=== PATIENT | female | born 1985 ===

== ENCOUNTER 2022-07-14 10:21 | Inpatient (IN) | payer SELFPAY ==
[2022-07-14] MEDS ORDERED: ACETAMINOPHEN 325 MG TAB PO PRN (13:27)
[2022-07-14] MEDS ORDERED: TERBUTALINE 1 MG/1 ML INJ SUB-Q PRN (13:27)
[2022-07-14] MEDS ORDERED: fentaNYL 100 MCG/2 ML INJ IV PRN (13:27)
[2022-07-14] MEDS ORDERED: BUTORPHANOL 2 MG/1 ML INJ IV PRN ×2 (13:27→22:28)
[2022-07-14] MEDS ORDERED: miSOPROStol 200 MCG TAB PR PRN (13:27)
[2022-07-14] MEDS ORDERED: LOPERAMIDE 2 MG CAP PO PRN (13:27)
[2022-07-14] MEDS ORDERED: METHYLERGONOVINE MALEATE 0.2 MG/ML VIAL IM PRN (13:27)
[2022-07-14] MEDS ORDERED: OXYTOCIN 10 UNIT/1 ML INJ IM PRN (13:27)
[2022-07-14] MEDS ORDERED: MINERAL OIL 30 ML ORAL LIQD PO PRN (13:27)
[2022-07-14] MEDS ORDERED: CARBOPROST TROMETHAMINE 250 MCG/1 ML INJ IM PRN (13:27)
[2022-07-14] MEDS ORDERED: LIDOCAINE (2%) 20 MG/1 ML VIAL 20 ML MDV INFILTRATI ONE (13:27)
[2022-07-14] MEDS ORDERED: ePHEDrine SULFATE 50 MG/1 ML INJ IV PRN (13:27)
[2022-07-14] MEDS ORDERED: LACTATED RINGERS 1,000 ML IV SCH (13:30)
[2022-07-14] MEDS ORDERED: MAGNESIUM SULFATE 4 GM/100 ML BAG IV ONE (13:42)
[2022-07-14 13:53] LABS: Hematocrit 32.8 % (30.3-42.9); Hemoglobin 10.3 gm/dl (10.1-14.3); Mean Corpuscular HGB Conc 31 % (30-34); Mean Corpuscular Volume 73 fl (79-97); Platelet Count 238 K/mm3 (140-440); Red Cell Distribution Width 17.2 % (13.2-15.2)
[2022-07-14] MEDS ORDERED: MAGNESIUM SULFATE 40GM/1000ML 40 GM/1,000 ML BAG IV SCH (14:00)
[2022-07-14] MEDS ORDERED: OXYTOCIN DRIP 30 UNITS/500 ML BAG IV SCH (14:00)
[2022-07-14] MEDS ORDERED: AMPICILLIN/NS 2 GM/100 ML 2 GM/100 ML BAG IV ONE (15:23)
[2022-07-14] MEDS: OXYTOCIN DRIP 30 UNITS/500 ML BAG IV SCH ×2 (15:48→18:53)
--- NOTE | 2022-07-14 16:11 | History and Physical Report ---
History of Present Illness Date of examination: 07/14/22 Date of admission: 07/14/22 13:27 Chief complaint: Presents from [facility] with elevated blood pressures. States she has had Nausea since this morning. History of present illness: Care at [facility], care complicated by a UTI, AMA, and Anemia. Past History Past Medical History: liver disease (Fatty Liver (seen on US on 01/2022)), other (Covid: 2020) Past Surgical History: other (Inguninal Hernia (2020)) Family/Genetic History: diabetes (Father), hypertension (Mother) Social history: no significant social history - Obstetrical History Expected Date of Delivery: 07/29/22 Actual Gestation: 37 Week(s) 6 Day(s) : 5 Para: 4 Hx # Term Pregnancies: 4 Number of Living Children: 4 #1 Gender: Female year: 2,002 Method of Delivery: Vaginal Gestational age at delivery: 40 Complications: none #2 Infant Gender: Female year: 2,006 Birthweight: 4.082 kg Method of Delivery: Vaginal Gestational age at delivery: 40 Complications: none #3 Infant Gender: Female year: 2,012 Birthweight: 4.082 kg Method of Delivery: Vaginal Gestational age at delivery: 40 Complications: none #4 Infant Gender: Male year: 2,016 Birthweight: 5.131 kg Method of Delivery: Vaginal Gestational age at delivery: 40 Complications: none Medications and Allergies Allergies Allergy/AdvReac Type Severity Reaction Status Date / Time No Known Allergies Allergy Unverified 05/06/15 02:40 Home Medications Medication Instructions Recorded Confirmed Last Taken Type Ibuprofen [Motrin 600 MG tab] 600 mg PO Q6HR #30 tablet 12/01/15 Unknown Rx oxyCODONE /ACETAMINOPHEN [Percocet 2 tab PO Q4H PRN #30 tablet 12/01/15 Unknown Rx 5/325 mg] Active Meds: Active Medications Acetaminophen (Acetaminophen 325 Mg Tab) 650 mg PO Q4H PRN PRN Reason: Pain, Mild (1-3) Butorphanol Tartrate (Butorphanol 2 Mg/1 Ml Inj) 1 mg IV Q2H PRN PRN Reason: Pain, Moderate(4-6) LABOR PAIN Carboprost Tromethamine (Carboprost Tromethamine 250 Mcg/1 Ml Inj) 250 mcg IM ONCE PRN PRN Reason: Uterine Bleeding Ephedrine Sulfate (Ephedrine Sulfate 50 Mg/1 Ml Inj) 10 mg IV Q2M PRN PRN Reason: Hypotension Fentanyl (Fentanyl 100 Mcg/2 Ml Inj) 100 mcg IV Q2H PRN PRN Reason: Pain,Severe (7-10) LABOR PAIN Oxytocin/Sodium Chloride (Pitocin/Ns 30 Unit/500ml) 30 units in 500 mls @ 2 mls/hr IV TITR PROMISE; Protocol Last Admin: 07/14/22 15:48 Dose: 2 ml/hr, 2 mls/hr Lactated Ringer's (Lactated Ringers) 1,000 mls @ 125 mls/hr IV DIRECT PROMISE Last Admin: 07/14/22 15:43 Dose: 125 mls/hr Oxytocin/Sodium Chloride (Pitocin/Ns 30 Unit/500ml) 30 units in 500 mls @ 40 mls/hr IV TITR PROMISE; Protocol Magnesium Sulfate (Magnesium Sulfate 40gm/1000ml) 40 gm in 1,000 mls @ 50 mls/hr IV DIRECT PROMISE Last Admin: 07/14/22 15:53 Dose: 2 gm/hr, 50 mls/hr Ampicillin Sodium (Ampicillin/Ns 2 Gm/100 Ml) 2 gm in 100 mls @ 100 mls/hr IV ONCE ONE; Protocol Stop: 07/14/22 16:22 Ampicillin Sodium (Ampicillin/Ns 1 Gm/50 Ml) 1 gm in 50 mls @ 100 mls/hr IV Q4H PROMISE; Protocol Loperamide HCl (Loperamide 2 Mg Cap) 2 mg PO ONCE PRN PRN Reason: give with Hemabate Methylergonovine Maleate (Methylergonovine Maleate 0.2 Mg/Ml Vial) 0.2 mg IM ONCE PRN PRN Reason: Uterine Bleeding Mineral Oil (Mineral Oil 30 Ml Oral Liqd) 30 ml PO QHS PRN PRN Reason: Constipation Misoprostol (Misoprostol 200 Mcg Tab) 800 mcg ME ONCE PRN PRN Reason: Uterine Bleeding Oxytocin (Oxytocin 10 Unit/1 Ml Inj) 10 unit IM ONCE PRN PRN Reason: Uterine Bleeding Terbutaline Sulfate (Terbutaline 1 Mg/1 Ml Inj) 0.25 mg SUB-Q ONCE PRN PRN Reason: Hyperstimulation/Hypertonicity Review of Systems All systems: negative Gastrointestinal: nausea - Vital Signs Vital signs: Vital Signs Pulse BP Pulse Ox 64 166/78 97 07/14/22 10:58 07/14/22 10:58 07/14/22 10:58 Temp Pulse Resp BP Pulse Ox 98.6 F 98 H 16 139/75 90 07/14/22 11:00 07/14/22 16:03 07/14/22 11:00 07/14/22 15:53 07/14/22 16:03 - Physical Exam Breasts: Positive: normal Cardiovascular: Regular rate Lungs: Positive: Clear to auscultation, Normal air movement Abdomen: Positive: normal appearance, soft, normal bowel sounds Genitourinary (Female): Positive: normal external genitalia, normal perenium Vagina: Positive: normal moisture Uterus: Positive: enlarged Anus/Rectum: Positive: normal perianal skin Extremities: Positive: edema (trace) - Obstetrical FHR: category 1 Uterine Contraction Monitor Mode: External Cervical Dilatation: 3 Cervical Effacement Percentage: 50 station: -3 Uterine Contraction Pattern: Irregular Uterine Tone Measurement Phase: Resting Uterine Contraction Intensity: Moderate Results Result Diagrams: 07/14/22 13:47 Abnormal lab results 07/14/22 Range/Units 13:47 MCV 73 L (79-97) fl MCH 23 L (28-32) pg RDW 17.2 H (13.2-15.2) % All other labs normal. Assessment and Plan A: IUP @ 37 6/7 Weeks Category I Tracing Preeclampsia AMA GBS Positive P: Admit to L&D Per Routine Orders PIH Labs Pitocin Induction GBS Prophylaxis Magnesium Sulfate 4G/loading dose; 2G/hourly Standard Magnesium Precautions Consulted Dr. Montemayor: Agrees with Current Plan of Care
[2022-07-14 16:12] LABS: Alanine Aminotransferase 9 units/L (7-56)
--- NOTE | 2022-07-14 18:56 | Progress Note ---
Assessment and Plan A: IUP @ 37 6/7 Weeks Category I Tracing Preeclampsia AMA GBS Positive P: AROM Continue Pitocin Induction Continue GBS Prophylaxis Continue Magnesium Sulfate 2G/hourly Standard Magnesium Precautions Subjective - Subjective Date of service: 07/14/22 Interval history: Care at [facility], care complicated by a UTI, AMA, and Anemia. Patient reports: movement normal, contractions Objective - Vital Signs Vital Signs: Vital Signs - 12hr 07/14/22 07/14/22 07/14/22 10:58 11:00 11:03 Temperature 98.6 F Pulse Rate 64 70 70 Respiratory 16 Rate Blood Pressure 166/78 Blood Pressure 166/78 [Right] O2 Sat by Pulse 97 99 98 Oximetry 07/14/22 07/14/22 07/14/22 11:08 11:13 11:14 Temperature Pulse Rate 60 65 64 Respiratory Rate Blood Pressure 161/82 Blood Pressure [Right] O2 Sat by Pulse 99 97 Oximetry 07/14/22 07/14/22 07/14/22 11:24 11:34 11:39 Temperature Pulse Rate 60 65 60 Respiratory Rate Blood Pressure 149/73 131/77 Blood Pressure [Right] O2 Sat by Pulse 97 97 Oximetry 07/14/22 07/14/22 07/14/22 11:44 11:49 11:54 Temperature Pulse Rate 65 66 64 Respiratory Rate Blood Pressure 131/81 Blood Pressure [Right] O2 Sat by Pulse 97 98 98 Oximetry 07/14/22 07/14/22 07/14/22 11:56 11:59 12:04 Temperature Pulse Rate 66 65 71 Respiratory Rate Blood Pressure 153/80 Blood Pressure [Right] O2 Sat by Pulse 97 97 Oximetry 07/14/22 07/14/22 07/14/22 12:09 12:14 12:19 Temperature Pulse Rate 65 63 64 Respiratory Rate Blood Pressure 136/72 Blood Pressure [Right] O2 Sat by Pulse 98 98 98 Oximetry 07/14/22 07/14/22 07/14/22 12:24 12:53 12:58 Temperature Pulse Rate 66 59 L 61 Respiratory Rate Blood Pressure 134/75 Blood Pressure [Right] O2 Sat by Pulse 98 98 98 Oximetry 07/14/22 07/14/22 07/14/22 13:03 13:07 13:08 Temperature Pulse Rate 69 60 63 Respiratory Rate Blood Pressure 139/68 Blood Pressure [Right] O2 Sat by Pulse 98 98 Oximetry 07/14/22 07/14/22 07/14/22 13:13 13:18 13:22 Temperature Pulse Rate 76 89 83 Respiratory Rate Blood Pressure 111/71 Blood Pressure [Right] O2 Sat by Pulse 96 97 Oximetry 07/14/22 07/14/22 07/14/22 13:23 13:28 13:33 Temperature Pulse Rate 92 H 81 73 Respiratory Rate Blood Pressure Blood Pressure [Right] O2 Sat by Pulse 94 95 97 Oximetry 07/14/22 07/14/22 07/14/22 13:37 13:38 13:43 Temperature Pulse Rate 78 67 74 Respiratory Rate Blood Pressure 115/77 Blood Pressure [Right] O2 Sat by Pulse 98 97 Oximetry 07/14/22 07/14/22 07/14/22 14:55 15:00 15:05 Temperature Pulse Rate 81 78 81 Respiratory Rate Blood Pressure Blood Pressure [Right] O2 Sat by Pulse 98 97 96 Oximetry 07/14/22 07/14/22 07/14/22 15:07 15:10 15:15 Temperature Pulse Rate 69 75 76 Respiratory Rate Blood Pressure 130/69 Blood Pressure [Right] O2 Sat by Pulse 96 98 Oximetry 07/14/22 07/14/22 07/14/22 15:20 15:24 15:25 Temperature Pulse Rate 79 79 78 Respiratory Rate Blood Pressure 143/80 Blood Pressure [Right] O2 Sat by Pulse 98 98 Oximetry 07/14/22 07/14/22 07/14/22 15:30 15:35 15:39 Temperature Pulse Rate 82 83 77 Respiratory Rate Blood Pressure 144/67 Blood Pressure [Right] O2 Sat by Pulse 97 97 Oximetry 07/14/22 07/14/22 07/14/22 15:40 15:45 15:50 Temperature Pulse Rate 83 80 80 Respiratory Rate Blood Pressure Blood Pressure [Right] O2 Sat by Pulse 97 96 97 Oximetry 07/14/22 07/14/22 07/14/22 15:53 15:55 16:00 Temperature Pulse Rate 76 95 H 81 Respiratory Rate Blood Pressure 139/75 Blood Pressure [Right] O2 Sat by Pulse 97 99 Oximetry 07/14/22 07/14/22 07/14/22 16:03 16:05 16:09 Temperature Pulse Rate 98 H 83 73 Respiratory Rate Blood Pressure 185/83 Blood Pressure [Right] O2 Sat by Pulse 90 98 Oximetry 07/14/22 07/14/22 07/14/22 16:10 16:15 16:20 Temperature Pulse Rate 76 78 78 Respiratory Rate Blood Pressure Blood Pressure [Right] O2 Sat by Pulse 96 96 96 Oximetry 07/14/22 07/14/22 07/14/22 16:24 16:25 16:30 Temperature Pulse Rate 71 76 71 Respiratory Rate Blood Pressure 149/71 Blood Pressure [Right] O2 Sat by Pulse 96 97 Oximetry 07/14/22 07/14/22 07/14/22 16:35 16:38 16:40 Temperature Pulse Rate 79 73 71 Respiratory Rate Blood Pressure 143/73 Blood Pressure [Right] O2 Sat by Pulse 97 97 Oximetry 07/14/22 07/14/22 07/14/22 16:45 16:50 16:52 Temperature Pulse Rate 77 76 73 Respiratory Rate Blood Pressure 131/70 Blood Pressure [Right] O2 Sat by Pulse 97 97 Oximetry 07/14/22 07/14/22 07/14/22 16:55 17:00 17:05 Temperature Pulse Rate 79 74 73 Respiratory Rate Blood Pressure Blood Pressure [Right] O2 Sat by Pulse 96 96 98 Oximetry 07/14/22 07/14/22 07/14/22 17:07 17:10 17:15 Temperature Pulse Rate 74 75 75 Respiratory Rate Blood Pressure 143/80 Blood Pressure [Right] O2 Sat by Pulse 98 97 Oximetry 07/14/22 07/14/22 07/14/22 17:20 17:22 17:25 Temperature Pulse Rate 79 70 70 Respiratory Rate Blood Pressure 139/78 Blood Pressure [Right] O2 Sat by Pulse 96 97 Oximetry 07/14/22 07/14/22 07/14/22 17:30 17:35 17:38 Temperature Pulse Rate 76 73 72 Respiratory Rate Blood Pressure 139/74 Blood Pressure [Right] O2 Sat by Pulse 98 97 Oximetry 07/14/22 07/14/22 07/14/22 17:40 17:45 17:50 Temperature Pulse Rate 85 73 75 Respiratory Rate Blood Pressure Blood Pressure [Right] O2 Sat by Pulse 97 97 98 Oximetry 07/14/22 07/14/22 07/14/22 17:52 17:55 18:00 Temperature Pulse Rate 75 73 71 Respiratory Rate Blood Pressure 135/73 Blood Pressure [Right] O2 Sat by Pulse 97 98 Oximetry 07/14/22 07/14/22 07/14/22 18:05 18:09 18:10 Temperature Pulse Rate 72 67 76 Respiratory Rate Blood Pressure 142/72 Blood Pressure [Right] O2 Sat by Pulse 96 98 Oximetry 07/14/22 07/14/22 07/14/22 18:15 18:20 18:25 Temperature Pulse Rate 84 83 73 Respiratory Rate Blood Pressure Blood Pressure [Right] O2 Sat by Pulse 98 97 97 Oximetry 07/14/22 07/14/22 07/14/22 18:30 18:35 18:38 Temperature Pulse Rate 74 71 75 Respiratory Rate Blood Pressure 153/76 Blood Pressure [Right] O2 Sat by Pulse 97 96 Oximetry 07/14/22 07/14/22 07/14/22 18:40 18:45 18:50 Temperature Pulse Rate 75 79 71 Respiratory Rate Blood Pressure Blood Pressure [Right] O2 Sat by Pulse 98 97 98 Oximetry - Exam Breasts: normal Cardiovascular: Regular rate Lungs: Clear to auscultation, Normal air movement Abdomen: Present: normal appearance, soft, normal bowel sounds Uterus: Present: normal, firm, fundal height above umbilicus FHR: category 1 Uterine Contraction Monitor Mode: External Cervical Dilatation: 4 (AROM of a moderate amount of clear fluid @1839) Cervical Effacement Percentage: 60 station: -3 Uterine Contraction Pattern: Regular Uterine Tone Measurement Phase: Resting Uterine Contraction Intensity: Moderate Extremities: normal - Labs Labs: Abnormal Labs 07/14/22 07/14/22 13:47 15:40 MCV 73 L MCH 23 L RDW 17.2 H Creatinine 0.5 L Laboratory Results - last 24 hr 07/14/22 07/14/22 07/14/22 13:00 13:45 13:47 WBC 6.4 RBC 4.50 Hgb 10.3 Hct 32.8 MCV 73 L MCH 23 L MCHC 31 RDW 17.2 H Plt Count 238 Creatinine Estimated GFR Uric Acid AST ALT Lactate Dehydrogenase Syphilis IgG/IgM Ab Nonreactive Blood Type O POSITIVE Antibody Screen Negative 07/14/22 15:40 WBC RBC Hgb Hct MCV MCH MCHC RDW Plt Count Creatinine 0.5 L Estimated GFR > 60 Uric Acid 4.0 AST 19 ALT 9 Lactate Dehydrogenase 129 Syphilis IgG/IgM Ab Blood Type Antibody Screen
[2022-07-14] MEDS ORDERED: AMPICILLIN/NS 1 GM/50 ML 1 GM/50 ML BAG IV SCH (20:00)
[2022-07-14 23:07] LABS: Color,Urine Colorless (Yellow)
[2022-07-14 23:12] LABS: Bacteria,Urine 1+ /HPF (Negative); Mucus,Urine FEW /HPF
[2022-07-14 23:17] LABS: Amphetamine Screen,Urine Negative; Benzodiazepines Screen,Urine Negative; Cannabinoid Screen,Urine Negative; Cocaine Screen,Urine Negative; Methadone Screen,Urine Negative; Opiate Screen,Urine Negative
[2022-07-14 23:24] LABS: Creatinine,Urine 35.2 mg/dL (0.1-20.0)
--- NOTE | 2022-07-15 00:56 | Procedure Note ---
OB Delivery Note - Delivery Date of Delivery: 07/14/22 Surgeon: HALIMA LEE Estimated blood loss: other (400 mL) - Vaginal Delivery presentation: vertex Delivery position: OA Intrapartum events: preeclampsia, other(please specify) (Pre-eclampsia w/ severe features, AMA, GBS (+)) Delivery induction: oxytocin Delivery augmentation: rupture of membranes Delivery monitor: external FHT, external uterine Route of delivery: Delivery placenta: spontaneous Delivery cord: 3 umbilical vessels Episiotomy: none Delivery laceration: none Anesthesia: none - A at 1 minute: 7 at 5 minutes: 9 Infant Gender: Male (3580 g)
[2022-07-15] MEDS ORDERED: BENZOCAINE/MENTHOL 20/0.5% TOP SPRAY 56 GM TP PRN (01:04)
[2022-07-15] MEDS ORDERED: diphenhydrAMINE 25 MG CAP PO PRN (01:04)
[2022-07-15] MEDS ORDERED: ACETAMINOPHEN 325 MG TAB PO PRN (01:04)
[2022-07-15] MEDS ORDERED: LANOLIN/ZINC/DIMETHICONE (LANSINOH) 7 GM TP PRN (01:04)
[2022-07-15] MEDS ORDERED: HYDROcodone/ACETAMINOPHEN 5-325 MG TAB PO PRN (01:04)
[2022-07-15] MEDS ORDERED: WITCH HAZEL/ GLYCERIN PAD TP PRN (01:04)
[2022-07-15] MEDS ORDERED: MAGNESIUM SULFATE 2 GM/50 ML BAG IV ONE (01:07)
[2022-07-15] MEDS ORDERED: MAGNESIUM SULFATE 40GM/1000ML 40 GM/1,000 ML BAG IV SCH (02:00)
[2022-07-15 07:44] LABS: Mean Corpuscular HGB Conc 31 % (30-34); Mean Corpuscular Volume 73 fl (79-97); Platelet Count 253 K/mm3 (140-440); Red Blood Count 4.38 M/mm3 (3.65-5.03); Red Cell Distribution Width 17.1 % (13.2-15.2)
[2022-07-15] MEDS: DOCUSATE SODIUM 100 MG CAP PO SCH (11:58)
--- NOTE | 2022-07-15 13:08 | Progress Note ---
Assessment and Plan PPD#1 with preeclampsia stable on mag sulfate 1. Routine care 2. Continue mag sulfate until 24hrs post delivery 3. all questions encouraged and answered using bond runner. Subjective Date of service: 07/15/22 Principal diagnosis: PPD#1 with preeclampsia Interval history: pt denies headache. pain controlled with meds. Vag bleed like a period. pt is bottle feeding because she says her milk has not arrived as yet Objective - Constitutional Vitals: Vital Signs - 12hr 07/15/22 07/15/22 07/15/22 01:19 01:20 01:39 Temperature Pulse Rate 69 62 79 Respiratory Rate Blood Pressure 146/69 Blood Pressure [Right] O2 Sat by Pulse 97 96 Oximetry O2 Sat by Pulse Oximetry [ Posterior Bilateral Throughout] 07/15/22 07/15/22 07/15/22 01:44 01:47 01:49 Temperature Pulse Rate 74 76 77 Respiratory Rate Blood Pressure Blood Pressure [Right] O2 Sat by Pulse 97 94 97 Oximetry O2 Sat by Pulse Oximetry [ Posterior Bilateral Throughout] 07/15/22 07/15/22 07/15/22 01:54 01:59 02:04 Temperature Pulse Rate 70 72 76 Respiratory Rate Blood Pressure Blood Pressure [Right] O2 Sat by Pulse 96 96 96 Oximetry O2 Sat by Pulse Oximetry [ Posterior Bilateral Throughout] 07/15/22 07/15/22 07/15/22 02:08 02:09 02:14 Temperature Pulse Rate 70 69 76 Respiratory Rate Blood Pressure 137/68 Blood Pressure [Right] O2 Sat by Pulse 97 96 Oximetry O2 Sat by Pulse Oximetry [ Posterior Bilateral Throughout] 07/15/22 07/15/22 07/15/22 02:19 02:24 02:29 Temperature Pulse Rate 79 76 77 Respiratory Rate Blood Pressure Blood Pressure [Right] O2 Sat by Pulse 96 98 97 Oximetry O2 Sat by Pulse Oximetry [ Posterior Bilateral Throughout] 07/15/22 07/15/22 07/15/22 02:34 02:38 02:39 Temperature Pulse Rate 74 71 76 Respiratory Rate Blood Pressure 138/71 Blood Pressure [Right] O2 Sat by Pulse 98 98 Oximetry O2 Sat by Pulse Oximetry [ Posterior Bilateral Throughout] 07/15/22 07/15/22 07/15/22 02:44 02:49 02:54 Temperature Pulse Rate 74 75 74 Respiratory Rate Blood Pressure Blood Pressure [Right] O2 Sat by Pulse 97 97 97 Oximetry O2 Sat by Pulse Oximetry [ Posterior Bilateral Throughout] 07/15/22 07/15/22 07/15/22 02:58 02:59 03:04 Temperature Pulse Rate 76 75 75 Respiratory Rate Blood Pressure Blood Pressure [Right] O2 Sat by Pulse 93 97 96 Oximetry O2 Sat by Pulse Oximetry [ Posterior Bilateral Throughout] 07/15/22 07/15/22 07/15/22 03:08 03:09 03:10 Temperature Pulse Rate 71 77 83 Respiratory Rate Blood Pressure 141/73 Blood Pressure [Right] O2 Sat by Pulse 96 93 Oximetry O2 Sat by Pulse Oximetry [ Posterior Bilateral Throughout] 07/15/22 07/15/22 07/15/22 03:14 03:19 03:24 Temperature Pulse Rate 79 76 78 Respiratory Rate Blood Pressure Blood Pressure [Right] O2 Sat by Pulse 96 98 97 Oximetry O2 Sat by Pulse Oximetry [ Posterior Bilateral Throughout] 07/15/22 07/15/22 07/15/22 03:29 03:34 03:38 Temperature Pulse Rate 81 75 75 Respiratory Rate Blood Pressure 140/76 Blood Pressure [Right] O2 Sat by Pulse 96 96 Oximetry O2 Sat by Pulse Oximetry [ Posterior Bilateral Throughout] 07/15/22 07/15/22 07/15/22 03:39 03:40 03:44 Temperature Pulse Rate 78 79 Respiratory Rate Blood Pressure Blood Pressure [Right] O2 Sat by Pulse 97 97 Oximetry O2 Sat by Pulse 97 Oximetry [ Posterior Bilateral Throughout] 07/15/22 07/15/22 07/15/22 03:49 03:54 03:59 Temperature Pulse Rate 76 81 83 Respiratory Rate Blood Pressure Blood Pressure [Right] O2 Sat by Pulse 98 99 98 Oximetry O2 Sat by Pulse Oximetry [ Posterior Bilateral Throughout] 07/15/22 07/15/22 07/15/22 04:04 04:09 04:14 Temperature Pulse Rate 82 87 89 Respiratory Rate Blood Pressure 138/76 Blood Pressure [Right] O2 Sat by Pulse 98 97 96 Oximetry O2 Sat by Pulse Oximetry [ Posterior Bilateral Throughout] 07/15/22 07/15/22 07/15/22 04:19 04:24 04:29 Temperature Pulse Rate 76 79 79 Respiratory Rate Blood Pressure Blood Pressure [Right] O2 Sat by Pulse 97 97 97 Oximetry O2 Sat by Pulse Oximetry [ Posterior Bilateral Throughout] 07/15/22 07/15/22 07/15/22 04:34 04:38 04:39 Temperature Pulse Rate 80 79 79 Respiratory Rate Blood Pressure 137/73 Blood Pressure [Right] O2 Sat by Pulse 97 97 Oximetry O2 Sat by Pulse Oximetry [ Posterior Bilateral Throughout] 07/15/22 07/15/22 07/15/22 04:44 04:49 04:54 Temperature Pulse Rate 80 78 79 Respiratory Rate Blood Pressure Blood Pressure [Right] O2 Sat by Pulse 96 97 96 Oximetry O2 Sat by Pulse Oximetry [ Posterior Bilateral Throughout] 07/15/22 07/15/22 07/15/22 04:59 05:02 05:04 Temperature Pulse Rate 82 84 85 Respiratory Rate Blood Pressure Blood Pressure [Right] O2 Sat by Pulse 97 94 97 Oximetry O2 Sat by Pulse Oximetry [ Posterior Bilateral Throughout] 07/15/22 07/15/22 07/15/22 05:09 05:14 05:19 Temperature Pulse Rate 85 84 82 Respiratory Rate Blood Pressure 134/76 Blood Pressure [Right] O2 Sat by Pulse 95 98 97 Oximetry O2 Sat by Pulse Oximetry [ Posterior Bilateral Throughout] 07/15/22 07/15/22 07/15/22 05:24 05:29 05:34 Temperature Pulse Rate 82 82 79 Respiratory Rate Blood Pressure Blood Pressure [Right] O2 Sat by Pulse 96 95 97 Oximetry O2 Sat by Pulse Oximetry [ Posterior Bilateral Throughout] 07/15/22 07/15/22 07/15/22 05:38 05:39 05:44 Temperature Pulse Rate 75 72 71 Respiratory Rate Blood Pressure 137/76 Blood Pressure [Right] O2 Sat by Pulse 97 96 Oximetry O2 Sat by Pulse Oximetry [ Posterior Bilateral Throughout] 07/15/22 07/15/22 07/15/22 05:49 05:54 05:59 Temperature Pulse Rate 72 72 76 Respiratory Rate Blood Pressure Blood Pressure [Right] O2 Sat by Pulse 98 98 98 Oximetry O2 Sat by Pulse Oximetry [ Posterior Bilateral Throughout] 07/15/22 07/15/22 07/15/22 06:04 06:09 06:14 Temperature Pulse Rate 78 73 82 Respiratory Rate Blood Pressure 138/74 Blood Pressure [Right] O2 Sat by Pulse 98 97 97 Oximetry O2 Sat by Pulse Oximetry [ Posterior Bilateral Throughout] 07/15/22 07/15/22 07/15/22 06:19 06:24 06:29 Temperature Pulse Rate 76 78 76 Respiratory Rate Blood Pressure Blood Pressure [Right] O2 Sat by Pulse 98 99 98 Oximetry O2 Sat by Pulse Oximetry [ Posterior Bilateral Throughout] 07/15/22 07/15/22 07/15/22 06:34 06:38 06:39 Temperature Pulse Rate 81 76 77 Respiratory Rate Blood Pressure 135/68 Blood Pressure [Right] O2 Sat by Pulse 98 99 Oximetry O2 Sat by Pulse Oximetry [ Posterior Bilateral Throughout] 07/15/22 07/15/22 07/15/22 06:44 06:49 06:54 Temperature Pulse Rate 83 81 76 Respiratory Rate Blood Pressure Blood Pressure [Right] O2 Sat by Pulse 99 98 98 Oximetry O2 Sat by Pulse Oximetry [ Posterior Bilateral Throughout] 07/15/22 07/15/22 07/15/22 06:59 07:04 07:08 Temperature Pulse Rate 77 73 74 Respiratory Rate Blood Pressure 121/68 Blood Pressure [Right] O2 Sat by Pulse 98 98 Oximetry O2 Sat by Pulse Oximetry [ Posterior Bilateral Throughout] 07/15/22 07/15/22 07/15/22 07:09 07:14 07:19 Temperature 98.1 F Pulse Rate 81 77 78 Respiratory 20 Rate Blood Pressure Blood Pressure [Right] O2 Sat by Pulse 98 98 97 Oximetry O2 Sat by Pulse Oximetry [ Posterior Bilateral Throughout] 07/15/22 07/15/22 07/15/22 07:24 07:29 07:34 Temperature Pulse Rate 85 86 81 Respiratory Rate Blood Pressure Blood Pressure [Right] O2 Sat by Pulse 97 97 98 Oximetry O2 Sat by Pulse Oximetry [ Posterior Bilateral Throughout] 07/15/22 07/15/22 07/15/22 07:39 07:40 07:44 Temperature Pulse Rate 82 80 Respiratory Rate Blood Pressure Blood Pressure [Right] O2 Sat by Pulse 98 96 Oximetry O2 Sat by Pulse 96 Oximetry [ Posterior Bilateral Throughout] 07/15/22 07/15/22 07/15/22 07:49 07:54 07:59 Temperature Pulse Rate 85 83 79 Respiratory Rate Blood Pressure Blood Pressure [Right] O2 Sat by Pulse 97 98 94 Oximetry O2 Sat by Pulse Oximetry [ Posterior Bilateral Throughout] 07/15/22 07/15/22 07/15/22 08:04 08:05 08:09 Temperature Pulse Rate 80 78 81 Respiratory Rate Blood Pressure 136/70 Blood Pressure [Right] O2 Sat by Pulse 96 91 96 Oximetry O2 Sat by Pulse Oximetry [ Posterior Bilateral Throughout] 07/15/22 07/15/22 07/15/22 08:11 08:14 08:19 Temperature Pulse Rate 91 H 79 84 Respiratory Rate Blood Pressure Blood Pressure [Right] O2 Sat by Pulse 94 96 96 Oximetry O2 Sat by Pulse Oximetry [ Posterior Bilateral Throughout] 07/15/22 07/15/22 07/15/22 08:24 08:29 08:34 Temperature Pulse Rate 82 82 87 Respiratory Rate Blood Pressure Blood Pressure [Right] O2 Sat by Pulse 98 98 97 Oximetry O2 Sat by Pulse Oximetry [ Posterior Bilateral Throughout] 07/15/22 07/15/22 07/15/22 08:39 08:44 08:49 Temperature Pulse Rate 90 86 83 Respiratory Rate Blood Pressure Blood Pressure [Right] O2 Sat by Pulse 96 96 96 Oximetry O2 Sat by Pulse Oximetry [ Posterior Bilateral Throughout] 07/15/22 07/15/22 07/15/22 08:54 08:59 09:01 Temperature Pulse Rate 80 77 84 Respiratory Rate Blood Pressure Blood Pressure [Right] O2 Sat by Pulse 96 95 94 Oximetry O2 Sat by Pulse Oximetry [ Posterior Bilateral Throughout] 07/15/22 07/15/22 07/15/22 09:04 09:09 09:14 Temperature Pulse Rate 86 88 85 Respiratory Rate Blood Pressure 121/67 Blood Pressure [Right] O2 Sat by Pulse 96 95 97 Oximetry O2 Sat by Pulse Oximetry [ Posterior Bilateral Throughout] 07/15/22 07/15/22 07/15/22 09:19 09:24 09:29 Temperature Pulse Rate 86 85 88 Respiratory Rate Blood Pressure Blood Pressure [Right] O2 Sat by Pulse 98 98 98 Oximetry O2 Sat by Pulse Oximetry [ Posterior Bilateral Throughout] 07/15/22 07/15/22 07/15/22 09:34 09:39 09:44 Temperature Pulse Rate 84 86 83 Respiratory Rate Blood Pressure Blood Pressure [Right] O2 Sat by Pulse 99 98 98 Oximetry O2 Sat by Pulse Oximetry [ Posterior Bilateral Throughout] 07/15/22 07/15/22 07/15/22 09:49 09:54 09:57 Temperature Pulse Rate 84 77 74 Respiratory Rate Blood Pressure Blood Pressure [Right] O2 Sat by Pulse 97 96 94 Oximetry O2 Sat by Pulse Oximetry [ Posterior Bilateral Throughout] 07/15/22 07/15/22 07/15/22 09:59 10:03 10:04 Temperature Pulse Rate 77 75 72 Respiratory Rate Blood Pressure Blood Pressure [Right] O2 Sat by Pulse 93 94 95 Oximetry O2 Sat by Pulse Oximetry [ Posterior Bilateral Throughout] 07/15/22 07/15/22 07/15/22 10:09 10:14 10:18 Temperature Pulse Rate 76 74 87 Respiratory Rate Blood Pressure 124/60 Blood Pressure [Right] O2 Sat by Pulse 95 95 93 Oximetry O2 Sat by Pulse Oximetry [ Posterior Bilateral Throughout] 07/15/22 07/15/22 07/15/22 10:19 10:24 10:29 Temperature Pulse Rate 86 75 74 Respiratory Rate Blood Pressure Blood Pressure [Right] O2 Sat by Pulse 97 95 95 Oximetry O2 Sat by Pulse Oximetry [ Posterior Bilateral Throughout] 07/15/22 07/15/22 07/15/22 10:30 10:34 10:39 Temperature Pulse Rate 76 89 79 Respiratory Rate Blood Pressure Blood Pressure [Right] O2 Sat by Pulse 94 98 96 Oximetry O2 Sat by Pulse Oximetry [ Posterior Bilateral Throughout] 07/15/22 07/15/22 07/15/22 10:44 10:49 10:54 Temperature Pulse Rate 75 87 80 Respiratory Rate Blood Pressure Blood Pressure [Right] O2 Sat by Pulse 96 96 97 Oximetry O2 Sat by Pulse Oximetry [ Posterior Bilateral Throughout] 07/15/22 07/15/22 07/15/22 10:59 11:04 11:09 Temperature Pulse Rate 79 82 79 Respiratory Rate Blood Pressure 113/60 Blood Pressure [Right] O2 Sat by Pulse 97 98 97 Oximetry O2 Sat by Pulse Oximetry [ Posterior Bilateral Throughout] 07/15/22 07/15/22 07/15/22 11:14 11:19 11:24 Temperature Pulse Rate 78 83 78 Respiratory Rate Blood Pressure Blood Pressure [Right] O2 Sat by Pulse 97 97 97 Oximetry O2 Sat by Pulse Oximetry [ Posterior Bilateral Throughout] 07/15/22 07/15/22 07/15/22 11:29 11:34 11:39 Temperature Pulse Rate 82 84 85 Respiratory Rate Blood Pressure Blood Pressure [Right] O2 Sat by Pulse 98 98 98 Oximetry O2 Sat by Pulse Oximetry [ Posterior Bilateral Throughout] 07/15/22 07/15/22 07/15/22 11:44 11:49 11:51 Temperature Pulse Rate 88 86 80 Respiratory Rate Blood Pressure Blood Pressure [Right] O2 Sat by Pulse 98 97 94 Oximetry O2 Sat by Pulse Oximetry [ Posterior Bilateral Throughout] 07/15/22 07/15/22 07/15/22 11:54 11:59 12:01 Temperature 98.4 F Pulse Rate 82 88 85 Respiratory 16 Rate Blood Pressure Blood Pressure 113/60 [Right] O2 Sat by Pulse 97 98 97 Oximetry O2 Sat by Pulse Oximetry [ Posterior Bilateral Throughout] 07/15/22 07/15/22 07/15/22 12:04 12:09 12:14 Temperature Pulse Rate 84 87 85 Respiratory Rate Blood Pressure 131/68 Blood Pressure [Right] O2 Sat by Pulse 98 96 98 Oximetry O2 Sat by Pulse Oximetry [ Posterior Bilateral Throughout] 07/15/22 07/15/22 07/15/22 12:19 12:24 12:29 Temperature Pulse Rate 78 84 84 Respiratory Rate Blood Pressure Blood Pressure [Right] O2 Sat by Pulse 98 98 98 Oximetry O2 Sat by Pulse Oximetry [ Posterior Bilateral Throughout] 07/15/22 07/15/22 07/15/22 12:34 12:39 12:44 Temperature Pulse Rate 86 86 88 Respiratory Rate Blood Pressure Blood Pressure [Right] O2 Sat by Pulse 98 98 98 Oximetry O2 Sat by Pulse Oximetry [ Posterior Bilateral Throughout] 07/15/22 07/15/22 07/15/22 12:49 12:54 12:59 Temperature Pulse Rate 86 94 H 86 Respiratory Rate Blood Pressure Blood Pressure [Right] O2 Sat by Pulse 98 98 97 Oximetry O2 Sat by Pulse Oximetry [ Posterior Bilateral Throughout] General appearance: Present: no acute distress - Neck Neck: normal ROM - Respiratory Respiratory effort: normal - Breasts Breasts: deferred - Cardiovascular Rhythm: regular Extremities: No edema - Gastrointestinal General gastrointestinal: Present: soft, non-tender - Genitourinary Female genitourinary: other (Fundus firm 1cm below the umbilicus, no tenderness) - Neurologic Neurologic: moves all extremities - Psychiatric Psychiatric: cooperative - Labs CBC & Chem 7: 07/15/22 06:51 07/14/22 15:40 Labs: Abnormal lab results 07/14/22 07/14/22 07/14/22 Range/Units 13:47 15:40 22:43 WBC (4.5-11.0) K/mm3 Hgb (10.1-14.3) gm/dl MCV 73 L (79-97) fl MCH 23 L (28-32) pg RDW 17.2 H (13.2-15.2) % Creatinine 0.5 L (0.6-1.2) mg/dL Magnesium 4.50 H (1.7-2.3) mg/dL Urine WBC (Auto) (0.0-6.0) /HPF Urine Creatinine (0.1-20.0) mg/dL Urine Total Protein (5-11.8) mg/dL 07/14/22 07/14/22 07/15/22 Range/Units Unknown Unknown 06:51 WBC 12.2 H (4.5-11.0) K/mm3 Hgb 10.0 L (10.1-14.3) gm/dl MCV 73 L (79-97) fl MCH 23 L (28-32) pg RDW 17.1 H (13.2-15.2) % Creatinine (0.6-1.2) mg/dL Magnesium (1.7-2.3) mg/dL Urine WBC (Auto) 8.0 H (0.0-6.0) /HPF Urine Creatinine 35.2 H (0.1-20.0) mg/dL Urine Total Protein 22 H (5-11.8) mg/dL 07/15/22 Range/Units 06:51 WBC (4.5-11.0) K/mm3 Hgb (10.1-14.3) gm/dl MCV (79-97) fl MCH (28-32) pg RDW (13.2-15.2) % Creatinine (0.6-1.2) mg/dL Magnesium 5.20 H (1.7-2.3) mg/dL Urine WBC (Auto) (0.0-6.0) /HPF Urine Creatinine (0.1-20.0) mg/dL Urine Total Protein (5-11.8) mg/dL Medications & Allergies - Medications Allergies/Adverse Reactions: Allergies No Known Allergies Allergy (Unverified 05/06/15 02:40) Home Medications: Home Medications Medication Instructions Recorded Confirmed Last Taken Type Integra Plus Capsule 1 tab-cap PO DAILY 07/15/22 07/15/22 2 Days Ago History ~07/13/22 Active Medications: Generic Name Dose Route Start Last Admin Trade Name Basilioq PRN Reason Stop Dose Admin Acetaminophen 650 mg 07/15/22 01:04 07/15/22 11:57 Acetaminophen 325 Mg Tab PO 650 mg Q4H PRN Administration Pain MILD(1-3)/Fever >100.5/PACK Hydrocodone Bitart/Acetaminophen 2 each 07/15/22 01:04 Hydrocodone/Acetaminophen 5-325 Mg Tab PO Q6H PRN Pain, Moderate (4-6) Benzocaine/Menthol 1 spray 07/15/22 01:04 Benzocaine/Menthol 20/0.5% [place] 56 Gm TP PRN PRN Episiotomy Pain Diphenhydramine HCl 25 mg 07/15/22 01:04 Diphenhydramine 25 Mg Cap PO Q6H PRN Itching Docusate Sodium 100 mg 07/15/22 10:00 07/15/22 11:58 Docusate Sodium 100 Mg Cap PO 100 mg BID PROMISE Administration Magnesium Sulfate 40 gm in 1,000 mls @ 50 mls/hr 07/15/22 02:00 07/15/22 02:00 Magnesium Sulfate 40gm/1000ml IV 07/15/22 23:17 2 gm/hr DIRECT PROMISE 50 mls/hr Administration 2 GM/HR Multi-Ingredient Ointment 1 applic 07/15/22 01:04 Lanolin/Zinc/Dimethicone (Lansinoh) 7 Gm TP PRN PRN Sore Nipples Sodium Chloride 10 ml 07/15/22 02:00 Sodium Chloride 0.9% 10 Ml Flush Syringe IV PRN PRN LINE FLUSH Witch Nadja/Glycerin 1 each 07/15/22 01:04 Witch Nadja/ Glycerin Pad TP PRN PRN Hemorrhoid/cleansing/soothing
[2022-07-15 13:30] LABS: Basophils % (Auto) 0.3 % (0.0-1.8); Eosinophils # (Auto) 0.1 K/mm3 (0.0-0.4); Eosinophils % (Auto) 0.5 % (0.0-4.3); Hematocrit 28.7 % (30.3-42.9); Hemoglobin 9.2 gm/dl (10.1-14.3); Lymphocytes # (Auto) 1.2 K/mm3 (1.2-5.4); Lymphocytes % (Auto) 12.1 % (13.4-35.0); Mean Corpuscular HGB Conc 32 % (30-34); Mean Corpuscular Volume 72 fl (79-97); Monocytes # (Auto) 0.5 K/mm3 (0.0-0.8); Platelet Count 242 K/mm3 (140-440); Red Blood Count 3.97 M/mm3 (3.65-5.03); Red Cell Distribution Width 17.2 % (13.2-15.2)
--- NOTE | 2022-07-16 06:45 | Progress Note ---
Assessment and Plan A: PPD # 2 - stable P: Discharge home today Discharge instructions given Subjective - Subjective Date of service: 07/16/22 Principal diagnosis: PPD#2 with preeclampsia Interval history: Feels good, no complaints Patient reports: appetite normal [place]: doing well Objective - Vital Signs Latest vital signs: Vital Signs Temp Pulse Resp BP BP Pulse Ox Pulse Ox 07/15/22 23:15 99 07/15/22 22:30 98.4 F 80 96 07/15/22 22:25 82 95 07/15/22 22:20 89 97 07/15/22 22:15 75 95 07/15/22 22:10 84 96 07/15/22 22:09 76 118/59 07/15/22 22:05 86 97 07/15/22 22:00 86 98 07/15/22 21:58 77 94 07/15/22 21:55 77 97 07/15/22 21:50 78 97 07/15/22 21:45 87 97 07/15/22 21:40 85 97 07/15/22 21:35 86 96 07/15/22 21:30 87 97 07/15/22 21:25 81 95 07/15/22 21:20 85 95 07/15/22 21:15 90 96 07/15/22 21:14 88 93 07/15/22 21:10 84 98 07/15/22 21:09 83 116/63 07/15/22 21:05 87 96 07/15/22 21:00 87 98 07/15/22 20:55 99 H 97 07/15/22 20:50 95 H 98 07/15/22 20:45 95 H 97 07/15/22 20:44 89 94 07/15/22 20:40 98 H 97 07/15/22 20:35 79 98 07/15/22 20:30 79 97 07/15/22 20:25 81 97 07/15/22 20:20 85 97 07/15/22 20:15 76 96 07/15/22 20:10 81 97 07/15/22 20:09 78 118/62 07/15/22 20:05 77 96 07/15/22 20:00 84 96 07/15/22 19:55 83 96 07/15/22 19:50 81 98 07/15/22 19:45 85 96 07/15/22 19:40 80 95 08/26/22 19:39 77 94 07/15/22 19:35 78 97 07/15/22 19:30 82 98 07/15/22 19:25 79 96 07/15/22 19:20 87 96 07/15/22 19:15 85 95 07/15/22 19:13 98.2 F 97 07/15/22 19:10 81 136/61 97 07/15/22 19:05 85 95 07/15/22 19:02 74 94 07/15/22 19:00 87 95 07/15/22 18:55 86 98 07/15/22 18:50 87 97 07/15/22 18:45 83 96 07/15/22 18:40 83 96 07/15/22 18:35 85 96 07/15/22 18:30 85 97 07/15/22 18:25 81 98 07/15/22 18:20 82 97 07/15/22 18:15 80 96 07/15/22 18:10 83 96 07/15/22 18:09 79 118/62 07/15/22 18:05 84 97 07/15/22 18:00 80 97 07/15/22 17:55 82 98 07/15/22 17:50 82 95 07/15/22 17:45 83 95 07/15/22 17:40 85 96 07/15/22 17:39 75 94 07/15/22 17:35 84 95 07/15/22 17:30 92 H 97 07/15/22 17:25 89 97 07/15/22 17:23 81 94 07/15/22 17:20 76 95 07/15/22 17:17 76 93 07/15/22 17:15 79 97 07/15/22 17:10 76 94 07/15/22 17:09 73 118/59 07/15/22 17:05 79 95 07/15/22 17:03 76 94 07/15/22 17:00 74 95 07/15/22 16:58 76 94 07/15/22 16:55 76 95 07/15/22 16:54 76 104/62 07/15/22 16:52 81 93 07/15/22 16:50 81 95 07/15/22 16:45 81 96 07/15/22 16:43 81 94 07/15/22 16:40 80 95 07/15/22 16:35 84 94 07/15/22 16:32 86 94 07/15/22 16:30 85 96 07/15/22 16:25 87 93 07/15/22 16:21 73 94 07/15/22 16:20 75 95 07/15/22 16:15 87 93 07/15/22 16:14 80 94 07/15/22 16:10 84 97 07/15/22 16:05 86 97 07/15/22 16:00 84 96 07/15/22 15:55 86 97 07/15/22 15:50 90 96 07/15/22 15:45 81 98 07/15/22 15:40 86 97 07/15/22 15:35 84 97 07/15/22 15:30 87 96 07/15/22 15:25 95 H 96 07/15/22 15:20 94 H 97 07/15/22 15:15 98 H 96 07/15/22 15:10 92 H 98 07/15/22 15:09 88 122/60 07/15/22 15:05 91 H 97 07/15/22 15:00 86 96 07/15/22 14:55 89 96 07/15/22 14:50 89 96 07/15/22 14:45 89 96 07/15/22 14:40 92 H 97 07/15/22 14:35 94 H 97 07/15/22 14:30 94 H 97 07/15/22 14:25 92 H 98 07/15/22 14:20 82 97 07/15/22 14:15 85 97 07/15/22 14:10 86 96 07/15/22 14:09 88 132/69 07/15/22 14:05 88 97 07/15/22 14:00 85 97 07/15/22 13:54 91 H 97 07/15/22 13:49 87 97 07/15/22 13:44 87 99 07/15/22 13:39 89 96 07/15/22 13:35 102 H 94 07/15/22 13:34 103 H 96 07/15/22 13:29 91 H 97 07/15/22 13:24 86 96 07/15/22 13:19 95 H 97 07/15/22 13:14 92 H 97 07/15/22 13:09 93 H 132/76 96 07/15/22 13:05 79 94 07/15/22 13:04 84 96 07/15/22 12:59 86 97 07/15/22 12:54 94 H 98 07/15/22 12:49 86 98 07/15/22 12:44 88 98 07/15/22 12:39 86 98 07/15/22 12:34 86 98 07/15/22 12:29 84 98 07/15/22 12:24 84 98 07/15/22 12:19 78 98 07/15/22 12:14 85 98 07/15/22 12:09 87 131/68 96 07/15/22 12:04 84 98 07/15/22 12:01 98.4 F 85 16 113/60 97 07/15/22 11:59 88 98 07/15/22 11:54 82 97 07/15/22 11:51 80 94 07/15/22 11:49 86 97 07/15/22 11:44 88 98 07/15/22 11:39 85 98 07/15/22 11:34 84 98 07/15/22 11:29 82 98 07/15/22 11:24 78 97 07/15/22 11:19 83 97 07/15/22 11:14 78 97 07/15/22 11:09 79 113/60 97 07/15/22 11:04 82 98 07/15/22 10:59 79 97 07/15/22 10:54 80 97 07/15/22 10:49 87 96 07/15/22 10:44 75 96 07/15/22 10:39 79 96 07/15/22 10:34 89 98 07/15/22 10:30 76 94 07/15/22 10:29 74 95 07/15/22 10:24 75 95 07/15/22 10:19 86 97 07/15/22 10:18 87 93 07/15/22 10:14 74 95 07/15/22 10:09 76 124/60 95 07/15/22 10:04 72 95 07/15/22 10:03 75 94 07/15/22 09:59 77 93 07/15/22 09:57 74 94 07/15/22 09:54 77 96 07/15/22 09:49 84 97 07/15/22 09:44 83 98 07/15/22 09:39 86 98 07/15/22 09:34 84 99 07/15/22 09:29 88 98 07/15/22 09:24 85 98 07/15/22 09:19 86 98 07/15/22 09:14 85 97 07/15/22 09:09 88 121/67 95 07/15/22 09:04 86 96 07/15/22 09:01 84 94 07/15/22 08:59 77 95 07/15/22 08:54 80 96 07/15/22 08:49 83 96 07/15/22 08:44 86 96 07/15/22 08:39 90 96 07/15/22 08:34 87 97 07/15/22 08:29 82 98 07/15/22 08:24 82 98 07/15/22 08:19 84 96 07/15/22 08:14 79 96 07/15/22 08:11 91 H 94 07/15/22 08:09 81 136/70 96 07/15/22 08:05 78 91 07/15/22 08:04 80 96 07/15/22 07:59 79 94 07/15/22 07:54 83 98 07/15/22 07:49 85 97 07/15/22 07:44 80 96 07/15/22 07:40 96 07/15/22 07:39 82 98 07/15/22 07:34 81 98 07/15/22 07:29 86 97 07/15/22 07:24 85 97 07/15/22 07:19 78 97 07/15/22 07:14 77 98 07/15/22 07:09 98.1 F 81 20 98 07/15/22 07:08 74 121/68 07/15/22 07:04 73 98 07/15/22 06:59 77 98 07/15/22 06:54 76 98 07/15/22 06:49 81 98 07/15/22 06:44 83 99 Intake and Output 07/15/22 07/15/22 07/16/22 14:59 22:59 06:59 Output Total 2300 1750 400 Balance -2300 -1750 -400 Output: Urine 2300 1750 400 Indwelling Catheter 2300 1750 Void 400 Other: Total, Output Amount 350 800 400 - Exam Breasts: Present: deferred Cardiovascular: Present: Regular rate Lungs: Present: Clear to auscultation Abdomen: Present: soft Vulva: both: normal Uterus: Present: fundal height below umbilicus Deep Tendon Reflex Grade: Normal +2 - Labs Labs: Abnormal lab results 07/15/22 07/15/22 07/15/22 Range/Units 06:51 06:51 13:06 WBC 12.2 H (4.5-11.0) K/mm3 Hgb 10.0 L 9.2 L (10.1-14.3) gm/dl Hct 28.7 L (30.3-42.9) % MCV 73 L 72 L (79-97) fl MCH 23 L 23 L (28-32) pg RDW 17.1 H 17.2 H (13.2-15.2) % Lymph % (Auto) 12.1 L (13.4-35.0) % Seg Neutrophils % 82.1 H (40.0-70.0) % Seg Neutrophils # 8.1 H (1.8-7.7) K/mm3 Magnesium 5.20 H (1.7-2.3) mg/dL 07/15/22 Range/Units 13:06 WBC (4.5-11.0) K/mm3 Hgb (10.1-14.3) gm/dl Hct (30.3-42.9) % MCV (79-97) fl MCH (28-32) pg RDW (13.2-15.2) % Lymph % (Auto) (13.4-35.0) % Seg Neutrophils % (40.0-70.0) % Seg Neutrophils # (1.8-7.7) K/mm3 Magnesium 4.90 H (1.7-2.3) mg/dL
--- NOTE | 2022-07-16 06:45 | Discharge Summary ---
Providers - Providers Date of Admission: 07/14/22 13:27 Date of discharge: 07/16/22 Attending physician: GREG UNGER Primary care physician: GREG UNGER Hospitalization Reason for admission: induction of labor (preeclampsia) Delivery: Episiotomy: none Laceration: none Discharge diagnosis: delivery [place] baby: male Condition at discharge: Good Disposition: 01 HOME / SELF CARE / HOMELESS Plan - Provider Discharge Summary Activity: routine, no sex for 6 weeks, no strenuous exercise Diet: routine Instructions: routine Additional instructions: [] Smoking cessation referral if applicable(refer to patient education folder for contact #) [] Refer to [facility] Book[facility] Call your doctor immediately for: * Fever > 100.5 * Heavy vaginal bleeding ( >1 pad per hour) * Severe persistent headache * Shortness of breath * Reddened, hot, painful area to leg or breast * Drainage or odor from incision. * Keep incision clean and dry at all times and follow doctor's instructions regarding bathing/showering - Follow up plan Follow up: GREG UNGER MD [Primary Care Provider] - 6 Weeks
[2022-07-16] MEDS: DOCUSATE SODIUM 100 MG CAP PO SCH (10:39)
[2022-07-16 17:01] VITALS: BP 136/71
== END 2022-07-16 17:09 | disposition home or self-care (01) | DRG 807 ==
LOC: TRG 10:21 → APU 10:22 → LD 12:52 → TRG 15:08 → OB 07-15 23:33
PROVIDERS: ADMIT Obstetrics & Gynecology; ATTEND Obstetrics & Gynecology
PROC: 10E0XZZ Delivery of Products of Conception, External Approach (ICD-10-PCS; principal; 2022-07-14)
PROC: 3E033VJ Introduction of Other Hormone into Peripheral Vein, Percutaneous Approach (ICD-10-PCS; 2022-07-14)
DX: O14.94 Unspecified pre-eclampsia, complicating childbirth (principal); Z37.0 Single live birth; Z3A.37 37 weeks gestation of pregnancy; Z20.822 Contact with and (suspected) exposure to COVID-19; O99.824 Streptococcus B carrier state complicating childbirth
CPT/HCPCS: 36415; 80307; 81001; 82565; 82570; 83615; 83735; 84156; 84450; 84460; 84550; 85014; 85018; 85025; 85027; 86592; 86850; 86900; 86901; G0378; J3490; J0290; J2590; J3010; J3475; J7120; U0003